=== PATIENT | male | born 1995 | race Two or more races ===

== ENCOUNTER 2020-03-06 16:49 | Emergency (ER) | payer BC, MEDICAID ==
[~2020-03-06] VITALS: Ht 182.9 cm; Wt 72.6 kg
--- NOTE | 2020-03-06 17:05 | NUR ---
PT came to ER ambulatory with steady gait. c/o facial numbness since yesteray around 7pm on and off and happened again today at 4pm. pt able to move extremities. no facial drooping. no c/o SOB. awaiting for MD angel
--- NOTE | 2020-03-06 17:35 | NUR ---
COVID SWAB DONE AND SENT TO LAB
[2020-03-06 17:40] LABS: WHITE BLOOD COUNT (AUTO) 8.8 K/uL (4.3-11.0)
[2020-03-06 18:03] LABS: BASOPHILS % (AUTO) 0.3 % (0.0-2.0); CALCIUM, SERUM 9.5 mg/dL (8.5-10.1); CREATININE 1.2 mg/dL (0.6-1.3); EOSINOPHILS % (AUTO) 2.3 % (0.0-6.0); HEMATOCRIT 50 % (39-51); HEMOGLOBIN 16.8 g/dL (13.5-17.5); LYMPHOCYTES # (AUTO) 2.4 /CMM (0.8-4.8); LYMPHOCYTES % (AUTO) 27.3 % (20.0-44.0); MEAN CORPUSCULAR HGB CONC 34 g/dl (31.0-36.0); MEAN CORPUSCULAR VOLUME 91 fL (80-96); MONOCYTES # (AUTO) 0.5 /CMM (0.1-1.30); NEUTROPHILS # (AUTO) 5.7 /CMM (1.8-8.9); NEUTROPHILS % (AUTO) 64.1 % (43.0-81.0); PLATELET COUNT (AUTO) 263 /CMM (150-450); POTASSIUM 4.1 mmol/L (3.5-5.1); RED BLOOD CELL COUNT(AUTO) 5.49 MIL/uL (4.5-6.0)
--- NOTE | 2020-03-06 18:27 | NUR ---
Patient discharged to home in stable condition. Patient verbalizes understanding of instruction. will call pt when the COVID result received. pt #
[2020-03-06 18:30] VITALS: BP 121/84
--- NOTE | 2020-03-06 18:30 | NUR ---
received a call fro the lab regarding covid 19 result "negative"
== END 2020-03-06 18:31 | disposition home or self-care (01) ==
LOC: ER 17:05
DX: R51.9 Headache, unspecified (principal); Z20.828 Contact with and (suspected) exposure to other viral communicable diseases; R20.2 Paresthesia of skin; J33.8 Other polyp of sinus; Z88.0 Allergy status to penicillin; J45.909 Unspecified asthma, uncomplicated
CPT/HCPCS: 36415; 70450; 80048; 85025; 87426; 99284; C9803

== ENCOUNTER 2020-04-06 20:22 | Outpatient (CLI) | payer OTHER | END 2020-04-06 23:59 | disposition home or self-care (01) | LOC: LAB 20:22 | DX: Z20.828 Contact with and (suspected) exposure to other viral communicable diseases (principal) | CPT/HCPCS: C9803; U0003 ==